=== PATIENT | female | born 1930 | race Two or more races ===

== ENCOUNTER 2018-11-04 20:27 | Emergency (ER) | payer BC, MEDICAID ==
[~2018-11-04] VITALS: Ht 152.4 cm; Wt 81.6 kg
[~2018-11-04 20:27] MED LIST: ATOR10TA68 PO; CAT.1 PO; CEPH-568 PO; DIGO125T79 PO; GLIP10TA3 PO; ISOS30TA PO; RANI150T8 PO
--- NOTE | 2018-11-04 20:28 | NUR ---
Placed in room 06 . Placed on monitoring specialist, blood pressure machine and pulse oximeter. To gown for exam. Side rails up. Report given to TOPHER SANDOVAL.
--- NOTE | 2018-11-04 20:28 | NUR ---
# 20 gauge angiocath placed to RAC. Use of asceptic technique. Opsite placed over site. Blood return noted. Blood for lab drawn from site. Flushed with 10 cc of normal saline. No evidence of infiltration noted. Patient tolerated well.
--- NOTE | 2018-11-04 20:29 | NUR ---
Pt was BIB son, c/o altered mental status. Per son, they were driving and he was talking to her in her normal baseline. Son then realized patient had a brief moment of silence and when patient started to talk, pt relayed that she was in [place]. Per son, pt appeared to be weak and "not herself." Pt is responsive pain. No other injuries/complaints per patient or noted.
--- NOTE | 2018-11-04 20:30 | NUR ---
ER Dr. SUMMERS at bedside examining patient.
[2018-11-04 20:32] VITALS: BP_SYST 181
--- NOTE | 2018-11-04 20:38 | NUR ---
EKG DONE AT BEDSIDE
[2018-11-04] MEDS ORDERED: ASPIRIN 81 MG TAB.CHEW PO ONE (20:45)
[2018-11-04] MEDS ORDERED: LANS15CA14 PO (20:48)
[2018-11-04] MEDS ORDERED: GABA-529 PO (20:48)
[2018-11-04] MEDS ORDERED: LOSA25TA11 PO (20:48)
[2018-11-04] MEDS ORDERED: APIX5TAB4 PO (20:48)
[2018-11-04] MEDS ORDERED: METO25TA3 PO (20:48)
[2018-11-04] MEDS ORDERED: HYDR25TA4 PO (20:48)
--- NOTE | 2018-11-04 20:48 | NUR ---
Medication reconciliation completed with information provided by FAMILY. Any prior medication reconciliation on file was reviewed and corrected.
--- NOTE | 2018-11-04 20:53 | NUR ---
X-ray at bedside.
[2018-11-04 21:12] LABS: HEMATOCRIT 33.9 % (36-48); HEMOGLOBIN 11.3 g/dL (12.0-16.0); MEAN CORPUSCULAR HEMOGLOBIN 28 pg (27-31); MEAN CORPUSCULAR HGB CONC 33 % (32-36); MEAN CORPUSCULAR VOLUME 83 fL (79.0-98.0); PLATELET COUNT (AUTO) 237 K/uL (130-430); RED BLOOD CELL COUNT(AUTO) 4.07 MIL/uL (4.2-6.2); RED CELL DISTRIBUTION WIDTH 13.2 % (9.0-15.0); WHITE BLOOD COUNT (AUTO) 6.6 K/uL (4.8-10.8)
[2018-11-04 21:13] LABS: NEUTROPHILS % (AUTO) 43.3 % (40.0-70.0)
[2018-11-04 21:14] LABS: BASOPHILS % (AUTO) 1.1 % (0.0-2.0); EOSINOPHILS # (AUTO) 0.1 K/uL (0.0-0.4); EOSINOPHILS % (AUTO) 1.4 % (0.0-4.0); LYMPHOCYTES # (AUTO) 3.1 K/uL (1.0-5.5); MONOCYTES # (AUTO) 0.4 K/uL (0.0-1.0); MONOCYTES % (AUTO) 6.2 % (1.7-9.3); NEUTROPHILS # (AUTO) 2.9 K/uL (1.8-7.7)
[2018-11-04 21:15] LABS: BASOPHILS # (AUTO) 0.1 K/uL (0.0-0.2)
[2018-11-04 21:24] LABS: POTASSIUM 4.1 mmol/L (3.5-5.1); SODIUM SERUM 132 mmol/L (136-145)
[2018-11-04 21:25] LABS: ALANINE AMINOTRANSFERASE 19 U/L (12-78); ANION GAP 9 (5-15); ASPARTATE AMINOTRANSFERASE 17 U/L (10-37); CALCIUM 9.5 mg/dL (8.4-11.0); CHLORIDE 97 mmol/L (98-107); CREATININE 1.31 mg/dL (0.55-1.30); GLUCOSE 251 mg/dL (70-99); TOTAL BILIRUBIN 0.3 mg/dL (0.0-1.0); UREA NITROGEN, BLOOD 31 mg/dL (8-21)
[2018-11-04 21:26] LABS: ALBUMIN 3.5 g/dL (3.4-4.8)
--- NOTE | 2018-11-04 21:30 | NUR ---
Pt returned from CT in stable condition.
[2018-11-04 21:43] LABS: PROTHROMBIN TIME 9.9 SECS (9.5-12.5)
[2018-11-04] MEDS ORDERED: LABETALOL 100 MG/ 20ML VIAL IVP ONE ×2 (21:45→22:45)
--- NOTE | 2018-11-04 22:24 | NUR ---
# 14 FR In and Out catheter with use of sterile technique. Immediate return of 200 ml clear yellow urine noted. Urine sample collected and sent to lab. Pt tolerated procedure well.
[2018-11-04 23:18] LABS: BILIRUBIN,URINE NEGATIVE (NEGATIVE); BLOOD, URINE 1+ (NEGATIVE); CLARITY/URINE CLEAR (CLEAR); COLOR,URINE YELLOW (YELLOW); GLUCOSE,URINE 1+ (NEGATIVE); KETONES,URINE NEGATIVE (NEGATIVE); LEUKOCYTE ESTERASE ,URINE 1+ (NEGATIVE); NITRITE, URINE NEGATIVE (NEGATIVE); PH,URINE 6.5 (5.0-8.0); PROTEIN URINE 2+ (NEGATIVE)
[2018-11-04 23:19] LABS: UROBILINOGEN,URINE 0.2 (0.2-1.0)
[2018-11-04 23:23] LABS: BACTERIA,URINE FEW /HPF (None Seen); MUCUS,URINE 1+ /LPF (None Seen); WBC,URINE 20-50 /HPF (0-3)
[2018-11-04 23:24] LABS: FINE GRANULAR CASTS,URINE 0-10 /LPF (None Seen)
[2018-11-04] MEDS ORDERED: cefTRIAXone 1 GM IVPB PREMIX 50 ML IV ONE (23:45)
--- NOTE | 2018-11-05 | NUR ---
Patient given written and verbal discharge instructions and verbalizes understanding. ER MD discussed with patient the results and treatment provided. Patient in stable condition. ID arm band removed. IV catheter removed intact and dressing applied, no active bleeding. Rx of keflex given. Patient educated on pain management and to follow up with PMD. Pain Scale 0/10. Opportunity for questions provided and answered. Medication side effect fact sheet provided.
[2018-11-05 00:20] VITALS: BP_SYST 168
== END 2018-11-05 | disposition home or self-care (01) ==
LOC: SED 20:27
DX: N39.0 Urinary tract infection, site not specified (principal); E11.9 Type 2 diabetes mellitus without complications; I10 Essential (primary) hypertension; Z79.899 Other long term (current) drug therapy
CPT/HCPCS: 36415; 70450; 71045; 80053; 81000; 82550; 82962; 83880; 84484; 85025; 85379; 85610; 87086; 93005; 96365; 96366; 96375; 99284; J0696; J3490